=== PATIENT | male | born 1935 | race Caucasian/White ===

== ENCOUNTER 2017-11-30 08:18 | Day surgery (SDC) | payer MEDICARE, OTHER ==
[~2017-11-30] VITALS: Ht 185.4 cm; Wt 81.4 kg
[2017-11-30] VITALS (20 sets, daily range): BP systolic 120–220; BP diastolic 55–123
[2017-11-30] MEDS ORDERED: normal saline 1000ml 1,000 ML IV PRN (08:50)
[2017-11-30] MEDS ORDERED: HYDR12.5 PO (08:54)
[2017-11-30] MEDS ORDERED: LEVO125T PO (08:56)
[2017-11-30] MEDS ORDERED: LISI40TA4 PO (08:57)
[2017-11-30 09:26] LABS: BASOPHILS # (AUTO) 0.1 X10'3 (0-0.2); BASOPHILS % (AUTO) 1.1 % (0-1); EOSINOPHILS # (AUTO) 0.1 X10'3 (0-0.9); EOSINOPHILS % (AUTO) 2.1 % (0-6); HEMATOCRIT 42.9 % (42.0-52.0); HEMOGLOBIN 14.4 g/dl (14.0-17.9); LYMPHOCYTES # (AUTO) 1.4 X10'3 (1.1-4.8); LYMPHOCYTES % (AUTO) 25.7 % (21-51); MEAN CORPUSCULAR HEMOGLOBIN 27.5 PG (27.0-31.0); MEAN CORPUSCULAR HGB CONC 33.5 % (33.0-36.5); MEAN CORPUSCULAR VOLUME 82.3 FL (78-98); MEAN PLATELET VOLUME 7.1 FL (7.4-10.4); MONOCYTES # (AUTO) 0.9 X10'3 (0-0.9); MONOCYTES % (AUTO) 16.4 % (2-12); NEUTROPHILS % (AUTO) 54.7 % (42-75); PLATELET COUNT 196 X10'3 (140-440); RED BLOOD COUNT 5.22 X10'6 (4.70-6.10); RED CELL DISTRIBUTION WIDTH 12.2 % (11.5-14.5); WHITE BLOOD COUNT 5.5 X10'3 (4.5-11.0)
[2017-11-30 09:50] LABS: TOTAL CELLS COUNTED 100
[2017-11-30 09:51] LABS: PLATELET ESTIMATE NORMAL
[2017-11-30] MEDS ORDERED: normal saline 1000ml 1,000 ML IV SCH (09:53)
[2017-11-30] MEDS ORDERED: fentaNYL/PF 50MCG/1 ML 2ML syringe IV PRN (09:55)
[2017-11-30] MEDS ORDERED: LIDOcaine 1%/PF (10mg/ml) 5ml vial SQ ONE (09:55)
[2017-11-30] MEDS ORDERED: midazolam 2 mg/2 ml injection IV PRN (09:55)
[2017-11-30] MEDS ORDERED: fentaNYL/PF 50MCG/1 ML 2ML syringe ONE (10:28)
[2017-11-30] MEDS ORDERED: midazolam 2 mg/2 ml injection ONE (10:28)
== END 2017-11-30 17:10 | disposition home or self-care (01) ==
LOC: SSTAY O 08:18
PROVIDERS: ATTEND Radiology Vascular & Interventional Radiology
DX: D38.1 Neoplasm of uncertain behavior of trachea, bronchus and lung (principal); I12.9 Hypertensive chronic kidney disease with stage 1 through stage 4 chronic kidney disease, or unspecified chronic kidney disease; N18.3 Chronic kidney disease, stage 3 (moderate); E03.9 Hypothyroidism, unspecified; E78.5 Hyperlipidemia, unspecified; Z87.891 Personal history of nicotine dependence; Z98.890 Other specified postprocedural states; Z98.52 Vasectomy status
CPT/HCPCS: 32405; 36415; 71045; 77012; 85025; 99152; 99153; J2250; J3010; J7030; 88173; 88305